=== PATIENT | female | born 2000 | race Caucasian/White ===

== ENCOUNTER 2020-01-30 17:23 | Emergency (ER) | payer OTHER ==
[~2020-01-30] VITALS: Ht 157.5 cm; Wt 81.6 kg
--- NOTE | 2020-01-30 18:54 | Emergency Department Note ---
History of Present Illnes History of Present Illness Chief Complaint: Laceration History of Present Illness This is a 19 year old female N FROM HOME WITH COMPLAINTS OF PUNCTURING HER LEG WITH A STYLUS BRUSH. STATES THAT IT WAS IN THE DOOR POCKET OF THE CAR AND WHEN SHE SWUNG HER LEGS OUT TO GET OUT IT PUNCTURED THE SIDE OF HER RIGHT LEG JUST ABOVE THE KNEE . 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 Any updates have been documented here. Past Medical History Recent Fever: No Clinical Suspicion of Infectio: No New/Unexplained Change in Ment: No Past Medical History: None Past Surgical History: None Social History Smoking Cessation: Never Smoker Alcohol Use: None Physically hurt or threatened: No Review of Systems Review of Systems Constitutional: Reports no symptoms EENTM: Reports no symptoms Cardiovascular: Reports no symptoms Respiratory: Reports no symptoms Gastrointestinal: Reports no symptoms Genitourinary: Reports no symptoms Musculoskeletal: Reports no symptoms Integumentary: Reports as per HPI Neurological: Reports no symptoms Psychological: Reports no symptoms Endocrine: Reports no symptoms Hematological/Lymphatic: Reports no symptoms Review of other systems: All other systems negative Physical Exam Related Data Allergies: Coded Allergies: No Known Allergies (Unverified , 01/30/20) Triage Vital Signs Vital Signs Date Time Temp Pulse Resp B/P (MAP) Pulse Ox O2 Delivery O2 Flow Rate FiO2 01/30/20 18:20 97.8 81 18 142/91 100 Room Air Vital signs reviewed: Yes Physical Exam CONSTITUTIONAL Constitutional: Present well-developed, Present well-nourished; Absent distressed HENT HENT: Present normocephalic, Present atraumatic, Present oropharynx clear/moist, Present nose normal HENT L/R: Present left ext ear normal, Present right ext ear normal EYES Eyes: Reports PERRL, Reports conjunctivae normal NECK Neck: Present ROM normal PULMONARY Pulmonary: Present effort normal, Present breath sounds normal CARDIOVASCULAR Cardiovascular: Present regular rhythm, Present heart sounds normal, Present capillary refill normal, Present normal rate GASTROINTESTINAL Abdominal: Present soft, Present nontender, Present bowel sounds normal GENITOURINARY Genitourinary: Present exam deferred SKIN Skin: Present warm, Present dry, Present other (2 lacerations to right lateral leg, 1st 1.5 cm length, 2nd 1 cm lenght) MUSCULOSKELETAL Musculoskeletal: Present ROM normal NEUROLOGICAL Neurological: Present alert, Present oriented x 3, Present no gross motor or sensory deficits PSYCHOLOGICAL Psychological: Present mood/affect normal, Present judgement normal Procedures Laceration Laceration: Laceration 1 Site: lower extremity Side: right Size (cm): 1.5 Description: linear Depth: simple, single layer Local anesthesia: lidocaine 1% Amount of anesthesia (mL): 2 Pre-repair: wound exposed, irrigated extensively, deep structures intact Skin layer closed with: other (prolene) Size (cm): 4-0 Number of sutures: 3 Technique: simple, interrupted Additional comments second laceration of right leg length 1 cm wound explored and irrigated 2 cc lidocaine 1% two 4-0 prolene sutures placed in simple interrupted pattern. Assessment & Plan Medical Decision Making MDM LACERATION RIGHT LEG WOUND REPAIRED SEE SUTURE NOTE Assessment & Plan Final Impression: (1) Laceration of right lower extremity Depart Disposition: HOME, SELF-CARE Last Vital Signs Date Time Temp Pulse Resp B/P (MAP) Pulse Ox O2 Delivery O2 Flow Rate FiO2 01/30/20 18:20 97.8 81 18 142/91 100 Room Air ED HERNANDEZ MD Jan 30, 2020 18:54
[2020-01-30] MEDS ORDERED: LIDOCAINE HCL 1% LOCAL INJ 20 ML VIAL INJ ONE (21:00)
== END 2020-01-30 22:13 | disposition home or self-care (01) ==
LOC: ER 18:14
DX: S71.111A Laceration without foreign body, right thigh, initial encounter (principal); W26.8XXA Contact with other sharp object(s), not elsewhere classified, initial encounter; Y92.89 Other specified places as the place of occurrence of the external cause
CPT/HCPCS: 12001; 99283; J2001